=== PATIENT | male | born 1990 | race Caucasian/White ===

== ENCOUNTER 2020-11-17 14:51 | Outpatient (CLI) | payer OTHER | END 2020-11-17 23:59 | disposition home or self-care (01) | LOC: RT 14:51 | PROVIDERS: ATTEND Orthopaedic Surgery | DX: R06.02 Shortness of breath (principal); R07.89 Other chest pain | CPT/HCPCS: 71046; 94010 ==

== ENCOUNTER 2021-02-10 09:02 | Outpatient (CLI) | payer OTHER | END 2021-02-10 23:59 | disposition home or self-care (01) | LOC: RAD 09:02 | DX: M13.80 Other specified arthritis, unspecified site (principal) | CPT/HCPCS: 72100; 73030; 73564 ==